=== PATIENT | male | born 1995 | race Caucasian/White ===

== ENCOUNTER 2017-04-07 00:34 | Inpatient (IN) | payer MEDICAID ==
[~2017-04-07] VITALS: Ht 172.7 cm; Wt 72.0 kg
[2017-04-07] MEDS ORDERED: InsuLIN R (HUMAN) 100 UNITS in SODIUM CHL 0.9% 99 ML IV SCH (00:50)
[2017-04-07] MEDS ORDERED: SODIUM CHLORIDE 0.9% 1,000 ML IV ONE (01:00)
[2017-04-07] MEDS ORDERED: SODIUM CHLORIDE 0.9% 2,000 ML IV ONE (01:00)
[2017-04-07] MEDS ORDERED: DEXTROSE (50%) 50ML SYRG IV PRN ×4 (01:00→19:30)
[2017-04-07] MEDS ORDERED: InsuLIN REG 1unit/0.01ml Soln (100units/ml) IV ONE (01:15)
[2017-04-07 01:21] LABS: Mean Corpuscular Hemoglobin 31.8 pg (28.0-32.0)
[2017-04-07 01:23] LABS: Hemoglobin 18.7 g/dL (13.5-17.5); Mean Corpuscular Hgb Conc. 32.2 g/dL (32.0-36.0); Mean Corpuscular Volume 98.9 fL (80.0-100.0); Mean Platelet Volume 8.2 fL (6.9-10.8); Platelet Count (auto) 485 10^3/uL (140-450); Red Cell Distribution Width 13.2 % (11.8-14.3)
[2017-04-07 01:34] LABS: White Blood Cell 38.7 10^3/uL (4.4-10.8)
[2017-04-07 01:35] LABS: Promyelocytes % 0; Reactive Lymphocytes 0
[2017-04-07] MEDS: ACCU-CHEK COMFORT CURVE STRIP VI SCH ×15 (01:40→20:00)
[2017-04-07 01:41] LABS: Albumin 4.5 g/dL (3.4-5.0); Amylase 22 U/L (25-115); Anion Gap 25 (5-15); Calcium 8.3 mg/dL (8.5-10.1); Chloride 97 mmol/L (98-107); Potassium 5.1 mmol/L (3.5-5.1); Sodium 129 mmol/L (136-145)
[2017-04-07 01:43] LABS: Lactic Acid w/Reflex 3.9 mmol/L (0.4-2.0)
[2017-04-07 01:44] LABS: Alkaline Phosphatase 234 U/L (45-117); Aspartate Aminotransferase 21 U/L (15-37); BUN/Creatinine Ratio 10.8; Bilirubin, Total 0.3 mg/dL (0.2-1.0); Blood Urea Nitrogen 18 mg/dL (7-18); GFR African American 66 mL/min; GFR Non-African American 55 mL/min; Total Protein 9.2 g/dL (6.4-8.2)
[2017-04-07] MEDS ORDERED: metroNIDAZOLE 500MG/100ML 100 ML IV ONE (01:45)
[2017-04-07] MEDS ORDERED: cefTRIAXone 1GM/10ml IVPUSH 10 ML IV ONE (01:45)
[2017-04-07 01:50] LABS: Metamyelocytes % 4; Myelocytes % 3; Platelet Estimate Increased; Tear Drop Cells FEW
[2017-04-07 01:54] LABS: Glucose 494 mg/dL (74-106)
[2017-04-07 01:55] LABS: Carbon Dioxide 7 mmol/L (21-32); REFLEX LACTIC ACID YES OR NO YES
[2017-04-07] MEDS: SODIUM CHLORIDE 0.9% 1,000 ML IV SCH ×4 (02:11→21:13)
[2017-04-07] MEDS ORDERED: SODIUM BICARBONATE 8.4 % INJ 50ML VIAL IV ONE (02:15)
[2017-04-07 02:18] LABS: Allen Test Yes; Base Excess -25.7 mmol/L (-2.0-2.0); Blood 02Sat 97.3 % (96-100); Blood COHb 0.3 % (0.5-1.5); Blood MetHb 0.6 % (0.0-1.5); HCO3 3.1 mmol/L (22-26.0); HHb 2.7 % (0.0-5.0); MODE ROOM AIR; O2Hb 96.4 % (94.0-97.0); PCO2 12.2 mmHg (35.0-45.0); PCO2(T) 12.2 mmHg (35.0-45.0); PO2 119.2 mmHg (80.0-100.0); PO2(T) 119.2 mmHg (80.0-100.0); Sample Type Arterial; pH 7.022 (7.350-7.450)
[2017-04-07 03:39] LABS: Urine RBC None Seen /hpf (0 - 3)
[2017-04-07 04:08] LABS: Urine Bilirubin Negative (Negative); Urine Blood TRACE /uL (Negative); Urine Color Yellow (Yellow); Urine Glucose 4+ mg/dL (Normal); Urine Granular Cast FEW /lpf (0); Urine Ketone 4+ (Negative); Urine Mucus FEW (None Seen); Urine Nitrite Negative (Negative); Urine Urobilinogen Normal (Negative)
[2017-04-07] MEDS ORDERED: SODIUM CHLORIDE 0.9% 1,000 ML IV SCH ×4 (06:11→12:45)
[2017-04-07] MEDS ORDERED: PROMETHAZINE HCL 25 MG/ML 1ML IV PRN (08:45)
[2017-04-07] MEDS ORDERED: LORazepam 0.5 MG TAB PO PRN (08:45)
[2017-04-07] MEDS ORDERED: TEMAZEPAM 15 MG CAP PO PRN (08:45)
[2017-04-07] MEDS ORDERED: HYDROcodone-ACET 5/325MG TAB PO PRN (08:45)
[2017-04-07] MEDS ORDERED: NITROGLYCERIN 0.4 MG SL TAB SL PRN (08:45)
[2017-04-07] MEDS ORDERED: MORPHINE SULF INJ 2 MG/ML SYRINGE 1ML IV PRN ×2 (08:45)
[2017-04-07 08:54] LABS: Albumin 3.2 g/dL (3.4-5.0); Potassium 3.9 mmol/L (3.5-5.1)
[2017-04-07 08:56] LABS: Bilirubin, Total 0.4 mg/dL (0.2-1.0); Total Protein 6.3 g/dL (6.4-8.2)
[2017-04-07 09:10] LABS: Hemoglobin 14.3 g/dL (13.5-17.5)
[2017-04-07] MEDS: FAMOTIDINE (10MG/ML) 2ML VL IV SCH ×2 (09:22→20:31)
[2017-04-07] MEDS: cefTRIAXone 1GM/10ml IVPUSH 10 ML IV SCH (09:24)
[2017-04-07 09:36] LABS: Hematocrit 42.4 % (41.0-53.0); Mean Corpuscular Hemoglobin 31.7 pg (28.0-32.0); Mean Corpuscular Hgb Conc. 33.7 g/dL (32.0-36.0); Mean Platelet Volume 7.8 fL (6.9-10.8); Platelet Count (auto) 313 10^3/uL (140-450); Red Cell Distribution Width 13.1 % (11.8-14.3); White Blood Cell 24.9 10^3/uL (4.4-10.8)
[2017-04-07 09:41] LABS: Promyelocytes % 0; Reactive Lymphocytes 0
[2017-04-07 10:52] LABS: BUN/Creatinine Ratio 12.8; Potassium 3.8 mmol/L (3.5-5.1)
[2017-04-07 11:05] LABS: Metamyelocytes % 1; Myelocytes % 1; Platelet Estimate Adequate
[2017-04-07 11:06] LABS: Burr Cells FEW; Stomatocytes Few; Tear Drop Cells FEW
[2017-04-07] MEDS ORDERED: INSLANTI SC (11:47)
[2017-04-07] MEDS ORDERED: INSREG3 IV (11:52)
[2017-04-07 15:18] LABS: BUN/Creatinine Ratio 11.9; Calcium 8.5 mg/dL (8.5-10.1); Potassium 3.6 mmol/L (3.5-5.1)
[2017-04-07] MEDS ORDERED: InsuLIN REG 1unit/0.01ml Soln (100units/ml) SC SCH ×2 (20:00)
[2017-04-07] MEDS ORDERED: ACCU-CHEK COMFORT CURVE STRIP VI SCH (20:00)
[2017-04-07] MEDS: InsuLIN REG 1unit/0.01ml Soln (100units/ml) SC SCH (20:35)
[2017-04-07 22:06] VITALS: BP 129/65
[2017-04-07 23:04] LABS: BUN/Creatinine Ratio 13.6; Calcium 8.1 mg/dL (8.5-10.1); Potassium 3.2 mmol/L (3.5-5.1)
[2017-04-08] MEDS: ACCU-CHEK COMFORT CURVE STRIP VI SCH ×7 (00:24→22:37)
[2017-04-08] MEDS: SODIUM CHLORIDE 0.9% 1,000 ML IV SCH ×4 (03:51→22:37)
[2017-04-08] MEDS: InsuLIN REG 1unit/0.01ml Soln (100units/ml) SC SCH ×8 (03:52→23:45)
[2017-04-08 05:34] VITALS: BP 101/51
[2017-04-08 06:22] LABS: BUN/Creatinine Ratio 15.9; Calcium 8.1 mg/dL (8.5-10.1); Potassium 3.3 mmol/L (3.5-5.1)
[2017-04-08 08:52] VITALS: BP 100/56
[2017-04-08] MEDS: cefTRIAXone 1GM/10ml IVPUSH 10 ML IV SCH (09:57)
[2017-04-08] MEDS: FAMOTIDINE (10MG/ML) 2ML VL IV SCH ×2 (09:57→20:22)
[2017-04-08 13:16] VITALS: BP 104/55
[2017-04-08 16:23] VITALS: BP 106/66
[2017-04-08 20:00] VITALS: BP 111/71
[2017-04-08] MEDS: ACETAMINOPHEN 500 MG TAB PO PRN (20:22)
[2017-04-08 22:00] VITALS: BP 121/76
[2017-04-08] MEDS: THROAT LOZENGES(CEPASTAT) MT PRN (22:38)
[2017-04-09] MEDS ORDERED: POTASSIUM CHL 20 Meq TABLET PO ONE (02:15)
[2017-04-09] MEDS: ACCU-CHEK COMFORT CURVE STRIP VI SCH ×3 (04:00→11:48)
[2017-04-09] MEDS: InsuLIN REG 1unit/0.01ml Soln (100units/ml) SC SCH ×3 (04:45→11:49)
[2017-04-09] MEDS: ACETAMINOPHEN 500 MG TAB PO PRN (04:46)
[2017-04-09] MEDS: THROAT LOZENGES(CEPASTAT) MT PRN (04:46)
[2017-04-09 05:00] VITALS: BP 102/72
[2017-04-09] MEDS: SODIUM CHLORIDE 0.9% 1,000 ML IV SCH (07:44)
[2017-04-09] MEDS: FAMOTIDINE (10MG/ML) 2ML VL IV SCH (08:27)
[2017-04-09 09:00] VITALS: BP 127/82
[2017-04-09] MEDS ORDERED: cefTRIAXone 1GM/10ml IVPUSH 10 ML IV SCH (09:00)
[2017-04-09 10:36] LABS: Basophils # (auto) 0 uL; Basophils % (auto) 0.4 % (0.0-2.0); Eosinophils # (auto) 0 uL; Eosinophils % (auto) 0.5 % (0.0-7.0); Hematocrit 37.5 % (41.0-53.0); Hemoglobin 12.9 g/dL (13.5-17.5); Lymphocytes # (auto) 1.2 uL; Mean Corpuscular Hemoglobin 31.8 pg (28.0-32.0); Mean Corpuscular Hgb Conc. 34.4 g/dL (32.0-36.0); Mean Corpuscular Volume 92.5 fL (80.0-100.0); Mean Platelet Volume 7.4 fL (6.9-10.8); Monocytes # (auto) 0.5 uL; Monocytes % (auto) 9.6 % (0.0-12.0); Neutrophils # (auto) 3.1 uL; Neutrophils % (auto) 64.5 % (37.0-80.0); Platelet Count (auto) 192 10^3/uL (140-450); Red Cell Distribution Width 13.3 % (11.8-14.3); White Blood Cell 4.7 10^3/uL (4.4-10.8)
[2017-04-09 10:50] LABS: Albumin 2.6 g/dL (3.4-5.0); BUN/Creatinine Ratio 21.2; Calcium 7.8 mg/dL (8.5-10.1); Potassium 3.4 mmol/L (3.5-5.1)
[2017-04-09 10:53] LABS: Bilirubin, Total 0.3 mg/dL (0.2-1.0); Total Protein 5.3 g/dL (6.4-8.2)
[2017-04-09 13:00] VITALS: BP 129/79
[2017-04-09 13:29] VITALS: BP 120/82
== END 2017-04-09 16:00 | disposition home or self-care (01) | DRG 720 ==
LOC: ER 00:41 → TELE 00:42 → TELE-WESTW 20:00
PROVIDERS: ADMIT Internal Medicine; ATTEND Internal Medicine
DX: A41.9 Sepsis, unspecified organism (principal); N17.0 Acute kidney failure with tubular necrosis; E10.10 Type 1 diabetes mellitus with ketoacidosis without coma; E87.1 Hypo-osmolality and hyponatremia; D47.3 Essential (hemorrhagic) thrombocythemia; E10.65 Type 1 diabetes mellitus with hyperglycemia; N13.30 Unspecified hydronephrosis; Z79.4 Long term (current) use of insulin; Z82.49 Family history of ischemic heart disease and other diseases of the circulatory system; Z83.3 Family history of diabetes mellitus
CPT/HCPCS: 36415; 36600; 71010; 74176; 76700; 80048; 80053; 80061; 80307; 81001; 82010; 82150; 82805; 82962; 83036; 83605; 83690; 84484; 85007; 85025; 85027; 85652; 87040; 87086; 93005; 96361; 96365; 96367; 96375; 96376; 99291; J1815; J3490

== ENCOUNTER 2017-04-26 14:46 | Inpatient (IN) | payer MEDICAID ==
[~2017-04-26] VITALS: Ht 172.7 cm; Wt 71.0 kg
[~2017-04-26 14:46] MED LIST: INSLANTI SC
[2017-04-26 21:44] LABS: BUN/Creatinine Ratio 14.8; Calcium 8.3 mg/dL (8.5-10.1); Potassium 3.3 mmol/L (3.5-5.1)
[2017-04-26 21:46] LABS: Basophils # (auto) 0.1 uL; Basophils % (auto) 1.4 % (0.0-2.0); Bilirubin, Total 0.3 mg/dL (0.2-1.0); Eosinophils # (auto) 0.1 uL; Eosinophils % (auto) 1.2 % (0.0-7.0); Hematocrit 38.4 % (41.0-53.0); Hemoglobin 13.3 g/dL (13.5-17.5); Lymphocytes # (auto) 1.8 uL; Lymphocytes % (auto) 31.4 % (10.0-50.0); Mean Corpuscular Hemoglobin 32.1 pg (28.0-32.0); Mean Corpuscular Hgb Conc. 34.8 g/dL (32.0-36.0); Mean Corpuscular Volume 92.4 fL (80.0-100.0); Monocytes # (auto) 0.8 uL; Neutrophils # (auto) 2.9 uL; Nucleated Red Blood Cells % 0.1 %; Platelet Count (auto) 226 10^3/uL (140-450); Red Blood Cells 4.15 10^6/uL (4.5-5.90); Red Cell Distribution Width 13.2 % (11.8-14.3); Total Protein 6.1 g/dL (6.4-8.2); White Blood Cell 5.6 10^3/uL (4.4-10.8)
[2017-04-26] MEDS ORDERED: ACETAMINOPHEN 500 MG TAB PO PRN (23:30)
[2017-04-26] MEDS ORDERED: ONDANSETRON HCL 4 MG/2 ML VIAL IV PRN (23:30)
[2017-04-26] MEDS ORDERED: HYDROmorphone HCL 2 MG/ML VL IV PRN (23:30)
[2017-04-27] MEDS ORDERED: DEXTROSE (50%) 50ML SYRG IV PRN (00:45)
[2017-04-27] MEDS: SODIUM CHLORIDE 0.9% 1,000 ML IV SCH ×3 (01:10→11:15)
[2017-04-27 05:48] LABS: Basophils # (auto) 0 uL; Basophils % (auto) 0.6 % (0.0-2.0); Eosinophils # (auto) 0.1 uL; Eosinophils % (auto) 1.6 % (0.0-7.0); Hematocrit 36.5 % (41.0-53.0); Hemoglobin 12.7 g/dL (13.5-17.5); Lymphocytes # (auto) 1.4 uL; Lymphocytes % (auto) 28.1 % (10.0-50.0); Mean Corpuscular Hemoglobin 31.9 pg (28.0-32.0); Mean Corpuscular Hgb Conc. 34.8 g/dL (32.0-36.0); Mean Corpuscular Volume 91.6 fL (80.0-100.0); Monocytes # (auto) 0.7 uL; Monocytes % (auto) 14.3 % (0.0-12.0); Neutrophils # (auto) 2.8 uL; Neutrophils % (auto) 55.4 % (37.0-80.0); Nucleated Red Blood Cells % 0.1 %; Platelet Count (auto) 221 10^3/uL (140-450); Red Blood Cells 3.98 10^6/uL (4.5-5.90); Red Cell Distribution Width 12.8 % (11.8-14.3)
[2017-04-27 05:52] LABS: INR 0.95 (0.9-1.15); Partial Thromboplastin Time 32.4 sec (22.64-33.71); Prothrombin Time 10.4 sec (9.37-12.3)
[2017-04-27 06:07] LABS: BUN/Creatinine Ratio 14.3; Calcium 8.2 mg/dL (8.5-10.1); Potassium 3.1 mmol/L (3.5-5.1)
[2017-04-27] MEDS: ACCU-CHEK COMFORT CURVE STRIP VI SCH ×4 (08:55→21:36)
[2017-04-27] MEDS: InsuLIN REG 1unit/0.01ml Soln (100units/ml) SC SCH ×4 (08:55→21:40)
[2017-04-27] MEDS ORDERED: POTASSIUM CHL 20 Meq TABLET PO ONE (10:45)
[2017-04-27] MEDS ORDERED: INSUINJ18 SC (13:58)
[2017-04-27] MEDS: ceFAZolin 1GM/50ML 50 ML IV SCH ×2 (14:09→21:30)
[2017-04-27 17:35] LABS: Urine Bacteria NONE SEEN /hpf (None Seen); Urine Blood Negative /uL (Negative); Urine Mucus FEW (None Seen); Urine Specific Gravity 1.019 (1.001-1.035); Urine WBC <1 /hpf (0 - 3)
[2017-04-27] MEDS: HYDROcodone-ACET 5/325MG TAB PO PRN (17:59)
[2017-04-27 22:00] VITALS: BP 111/66
[2017-04-28] MEDS: SODIUM CHLORIDE 0.9% 1,000 ML IV SCH (01:33)
[2017-04-28 06:12] LABS: Basophils # (auto) 0 uL; Basophils % (auto) 0.6 % (0.0-2.0); Eosinophils # (auto) 0.1 uL; Eosinophils % (auto) 2.1 % (0.0-7.0); Hematocrit 37.9 % (41.0-53.0); Hemoglobin 12.6 g/dL (13.5-17.5); Lymphocytes # (auto) 1.6 uL; Lymphocytes % (auto) 34.6 % (10.0-50.0); Mean Corpuscular Hemoglobin 31.1 pg (28.0-32.0); Mean Corpuscular Hgb Conc. 33.3 g/dL (32.0-36.0); Mean Corpuscular Volume 93.5 fL (80.0-100.0); Monocytes # (auto) 0.5 uL; Monocytes % (auto) 10.6 % (0.0-12.0); Neutrophils # (auto) 2.5 uL; Neutrophils % (auto) 52.1 % (37.0-80.0); Nucleated Red Blood Cells % 0.1 %; Platelet Count (auto) 216 10^3/uL (140-450); Red Blood Cells 4.05 10^6/uL (4.5-5.90); Red Cell Distribution Width 12.8 % (11.8-14.3); White Blood Cell 4.7 10^3/uL (4.4-10.8)
[2017-04-28 06:20] LABS: BUN/Creatinine Ratio 13.2; Calcium 8.2 mg/dL (8.5-10.1); Magnesium 2.1 mg/dL (1.6-2.6); Potassium 3.8 mmol/L (3.5-5.1)
[2017-04-28] MEDS: ceFAZolin 1GM/50ML 50 ML IV SCH ×2 (06:36→14:00)
[2017-04-28] MEDS: ACCU-CHEK COMFORT CURVE STRIP VI SCH ×2 (06:38→14:55)
[2017-04-28] MEDS: InsuLIN REG 1unit/0.01ml Soln (100units/ml) SC SCH ×2 (06:43→14:55)
[2017-04-28] MEDS: HYDROcodone-ACET 5/325MG TAB PO PRN (06:48)
[2017-04-28 09:00] VITALS: BP 125/75
[2017-04-28] MEDS ORDERED: HYDR-4683 PO (13:16)
[2017-04-28] MEDS ORDERED: CEPH-37 PO (13:16)
== END 2017-04-28 19:37 | disposition home or self-care (01) | DRG 501 ==
LOC: ER 14:46 → OVERFLOW 14:47 → WEST WING 04-27 09:39
PROVIDERS: ADMIT Nurse Practitioner Family; ATTEND Internal Medicine
DX: S30.22XA Contusion of scrotum and testes, initial encounter (principal); E44.1 Mild protein-calorie malnutrition; E10.9 Type 1 diabetes mellitus without complications; E87.6 Hypokalemia; V86.56XA Driver of dirt bike or motor/cross bike injured in nontraffic accident, initial encounter; Y93.55 Activity, bike riding; Z79.4 Long term (current) use of insulin; Y92.89 Other specified places as the place of occurrence of the external cause
CPT/HCPCS: 36415; 74176; 76870; 80048; 80053; 81001; 82962; 83036; 83735; 85025; 85610; 85730; 87081; J0690; J1815

== ENCOUNTER 2017-10-25 16:26 | Emergency (ER) | payer MEDICAID, OTHER ==
[~2017-10-25] VITALS: Ht 172.7 cm; Wt 73.9 kg
[~2017-10-25 16:26] MED LIST changes: +CEPH-37 PO; +HYDR-4683 PO; +INSUINJ18 SC
[2017-10-25 16:34] VITALS: BP 138/82
== END 2017-10-25 18:43 | disposition home or self-care (01) ==
LOC: ER 16:29
DX: H11.32 Conjunctival hemorrhage, left eye (principal); E11.9 Type 2 diabetes mellitus without complications; Z76.0 Encounter for issue of repeat prescription
CPT/HCPCS: 70450; 71046

== ENCOUNTER 2017-11-28 09:21 | Emergency (ER) | payer OTHER ==
[~2017-11-28] VITALS: Ht 172.7 cm; Wt 72.6 kg
[2017-11-28 09:31] VITALS: BP 133/87
== END 2017-11-28 10:25 | disposition home or self-care (01) ==
LOC: ER 09:21
DX: S96.912A Strain of unspecified muscle and tendon at ankle and foot level, left foot, initial encounter (principal); E11.9 Type 2 diabetes mellitus without complications; V28.4XXA Motorcycle driver injured in noncollision transport accident in traffic accident, initial encounter; Y93.89 Activity, other specified; Y99.8 Other external cause status; Y92.89 Other specified places as the place of occurrence of the external cause
CPT/HCPCS: 73610